=== PATIENT | female | born 1970 | race African-American/Black ===

== ENCOUNTER 2021-11-20 14:35 | Emergency (ER) | payer OTHER ==
[~2021-11-20] VITALS: Ht 170.2 cm; Wt 102.0 kg
[2021-11-20 14:38] VITALS: BP 228/134
[2021-11-20 15:47] LABS: CLARITY URINE CLEAR (CLEAR); COLOR URINE YELLOW (YELLOW); KETONES URINE NEGATIVE (NEGATIVE); LEUKOCYTE ESTERASE URINE NEGATIVE (NEGATIVE); NITRITE URINE NEGATIVE (NEGATIVE); OCCULT BLOOD URINE NEGATIVE (NEGATIVE); PROTEIN URINE NEGATIVE (NEGATIVE); SPECIFIC GRAVITY URINE 1.008 (1.005-1.030); UROBILINOGEN URINE 0.2 E.U./dL (0.2-1.0)
== END 2021-11-20 17:10 | disposition home or self-care (01) ==
LOC: ER 14:51
DX: I10 Essential (primary) hypertension (principal); R55 Syncope and collapse; Z98.890 Other specified postprocedural states; Z88.0 Allergy status to penicillin
CPT/HCPCS: 81003; 81025; 99284